=== PATIENT | female | born 1965 | race Caucasian/White ===

== ENCOUNTER 2018-10-10 17:14 | Emergency (ER) | payer MEDICARE, MEDICAID ==
[~2018-10-10] VITALS: Ht 170.2 cm; Wt 109.0 kg
[~2018-10-10 17:14] MED LIST: ATOR40TA PO; DESV100T PO; IBUP-1986 PO; LOSA1TAB41 PO; MORP30TA60 PO; NORCO10T PO; PYRI100T2 PO; TIZA4CAP PO
[2018-10-10 17:58] LABS: BASOPHILS # (AUTO) 0.1 X10'3 (0-0.2); BASOPHILS % (AUTO) 0.6 % (0-1); EOSINOPHILS # (AUTO) 0.3 X10'3 (0-0.9); EOSINOPHILS % (AUTO) 2.7 % (0-6); HEMATOCRIT 36.8 % (35.0-45.0); HEMOGLOBIN 11.8 g/dl (12.0-16.0); LYMPHOCYTES # (AUTO) 4.1 X10'3 (1.1-4.8); LYMPHOCYTES % (AUTO) 35.5 % (21-51); MEAN CORPUSCULAR HEMOGLOBIN 29.8 PG (27.0-31.0); MEAN CORPUSCULAR HGB CONC 32.1 g/dL (33.0-36.5); MEAN CORPUSCULAR VOLUME 92.9 FL (78-98); MONOCYTES # (AUTO) 0.7 X10'3 (0-0.9); MONOCYTES % (AUTO) 6.1 % (2-12); NEUTROPHILS # (AUTO) 6.4 X10'3 (1.8-7.7); NEUTROPHILS % (AUTO) 55.1 % (42-75); PLATELET COUNT 460 X10'3 (140-440); RED BLOOD COUNT 3.96 X10'6 (4.20-5.60); WHITE BLOOD COUNT 11.6 X10'3 (4.5-11.0)
[2018-10-10 18:08] LABS: ALBUMIN 4.1 G/DL (3.4-5.0); ANION GAP 11 (8-16); BILIRUBIN,TOTAL 0.4 MG/DL (0.1-1.0); BLOOD UREA NITROGEN 25 MG/DL (7-18); BUN/CREATININE RATIO 19.1 (6.6-38.0); CHLORIDE 103 MMOL/L (99-107); CREATININE 1.31 MG/DL (0.40-0.90); GLUCOSE 160 MG/DL (70-104); SODIUM 142 MMOL/L (135-145); TOTAL CARBON DIOXIDE 28.1 MMOL/L (24-32); TOTAL PROTEIN 8.3 G/DL (6.4-8.2); eGFR 42 ML/MIN
[2018-10-10 18:09] LABS: ALANINE AMINOTRANSFERASE 17 U/L (12-78); ALKALINE PHOSPHATASE 46 IU/L (46-116); ASPARTATE AMINO TRANSFERASE 30 U/L (10-37)
[2018-10-10 18:25] LABS: PARTIAL THROMBOPLASTIN TIME 25 SECONDS (22-32); PROTHROMBIN TIME 10.1 SECONDS (9.0-12.0)
[2018-10-10] MEDS ORDERED: ondansetron/PF 4mg/2ml inj IV ONE (19:40)
[2018-10-10] MEDS ORDERED: morphine 4 MG/ML inj SYRINge IV ONE (19:40)
[2018-10-10 19:56] LABS: LIPASE 154 U/L (73-393)
--- NOTE | 2018-10-10 21:05 | NUR ---
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
[2018-10-10] MEDS ORDERED: PANT-47 PO (22:33)
[2018-10-10 22:48] VITALS: BP 132/79
== END 2018-10-10 22:51 | disposition home or self-care (01) ==
LOC: ER 17:15
DX: R10.13 Epigastric pain (principal); R10.11 Right upper quadrant pain; R10.12 Left upper quadrant pain; I10 Essential (primary) hypertension; G89.29 Other chronic pain; Z90.710 Acquired absence of both cervix and uterus; Z98.890 Other specified postprocedural states; Z56.0 Unemployment, unspecified; Z88.2 Allergy status to sulfonamides; Z88.5 Allergy status to narcotic agent; Z88.8 Allergy status to other drugs, medicaments and biological substances; Z79.899 Other long term (current) drug therapy
CPT/HCPCS: 36415; 71045; 76700; 80053; 83690; 84484; 85025; 85610; 85730; 93005; 96374; 96375; 99284; J2270; J2405

== ENCOUNTER 2020-10-11 07:24 | Emergency (ER) | payer MEDICARE, MEDICAID ==
[~2020-10-11] VITALS: Ht 170.2 cm; Wt 111.4 kg
[~2020-10-11 07:24] MED LIST changes: +PANT-47 PO; +PYRI100T10 PO; -PYRI100T2 PO
[2020-10-11 07:58] LABS: BASOPHILS # (AUTO) 0.1 X10'3 (0-0.2); BASOPHILS % (AUTO) 1.2 % (0-1); EOSINOPHILS # (AUTO) 0.3 X10'3 (0-0.9); HEMOGLOBIN 12.7 g/dl (12.0-16.0); LYMPHOCYTES # (AUTO) 3.8 X10'3 (1.1-4.8); LYMPHOCYTES % (AUTO) 44.1 % (21-51); MEAN CORPUSCULAR HEMOGLOBIN 32.2 PG (27.0-31.0); MEAN CORPUSCULAR HGB CONC 34.3 g/dL (33.0-36.5); MEAN CORPUSCULAR VOLUME 93.8 FL (78-98); MEAN PLATELET VOLUME 8.3 FL (7.4-10.4); MONOCYTES # (AUTO) 0.7 X10'3 (0-0.9); MONOCYTES % (AUTO) 8.1 % (2-12); NEUTROPHILS # (AUTO) 3.8 X10'3 (1.8-7.7); NEUTROPHILS % (AUTO) 43.6 % (42-75); PLATELET COUNT 303 X10'3 (140-440); RED BLOOD COUNT 3.94 X10'6 (4.20-5.60); RED CELL DISTRIBUTION WIDTH 12.8 % (11.5-14.5); WHITE BLOOD COUNT 8.7 X10'3 (4.5-11.0)
--- NOTE | 2020-10-11 08:04 | NUR ---
pt states she has been out of her meds for a while and has been in the middle of a move and hasn't been able to get to find a new doctor.
[2020-10-11 08:23] LABS: ALANINE AMINOTRANSFERASE 16 U/L (12-78); ALBUMIN 3.6 G/DL (3.4-5.0); ALBUMIN/GLOBULIN RATIO 0.9 (1.1-1.5); ALKALINE PHOSPHATASE 70 IU/L (46-116); ANION GAP 12 (8-16); ASPARTATE AMINO TRANSFERASE 13 U/L (10-37); BILIRUBIN,TOTAL 0.3 MG/DL (0.1-1.0); BLOOD UREA NITROGEN 19 MG/DL (7-18); BUN/CREATININE RATIO 24.1 (6.6-38.0); CALCIUM 9.7 MG/DL (8.5-10.1); CHLORIDE 106 MMOL/L (99-107); CREATININE 0.79 MG/DL (0.40-0.90); GLUCOSE 133 MG/DL (70-104); POTASSIUM 3.6 MMOL/L (3.5-5.1); SODIUM 144 MMOL/L (135-145); TOTAL CARBON DIOXIDE 26.4 MMOL/L (24-32); TOTAL PROTEIN 7.6 G/DL (6.4-8.2); eGFR 75 ML/MIN
--- NOTE | 2020-10-11 10:44 | NUR ---
pt resting on gurney, attempting to sleep
[2020-10-11 12:18] VITALS: BP 139/98
== END 2020-10-11 12:19 | disposition home or self-care (01) ==
LOC: ER 07:25
DX: R07.89 Other chest pain (principal); R42 Dizziness and giddiness; R11.0 Nausea; I10 Essential (primary) hypertension; G89.29 Other chronic pain; Z90.710 Acquired absence of both cervix and uterus; Z56.0 Unemployment, unspecified; Z86.19 Personal history of other infectious and parasitic diseases; Z88.2 Allergy status to sulfonamides; Z88.8 Allergy status to other drugs, medicaments and biological substances; Z79.899 Other long term (current) drug therapy
CPT/HCPCS: 36415; 71045; 80053; 83880; 84484; 85025; 93005; 99285

== ENCOUNTER 2021-02-14 12:49 | Emergency (ER) | payer MEDICARE, MEDICAID ==
[~2021-02-14] VITALS: Ht 172.7 cm; Wt 118.8 kg
[2021-02-14 13:02] VITALS: BP 145/73
[2021-02-14] MEDS ORDERED: cyclobenzaprine 10mg tablet PO ONE (15:20)
[2021-02-14] MEDS ORDERED: ketorolac tromethamine 15mg/ml inj. IM ONE (15:20)
[2021-02-14] MEDS ORDERED: ORPH100T2 PO (15:32)
[2021-02-14] MEDS ORDERED: IBUP-1984 PO (15:32)
== END 2021-02-14 16:03 | disposition home or self-care (01) ==
LOC: ER 12:50
DX: S39.012A Strain of muscle, fascia and tendon of lower back, initial encounter (principal); M54.6 Pain in thoracic spine; I10 Essential (primary) hypertension; G89.29 Other chronic pain; F32.9 Major depressive disorder, single episode, unspecified; Z90.710 Acquired absence of both cervix and uterus; Z98.890 Other specified postprocedural states; Z56.0 Unemployment, unspecified; Z88.2 Allergy status to sulfonamides; Z88.5 Allergy status to narcotic agent; Z88.8 Allergy status to other drugs, medicaments and biological substances; Z79.899 Other long term (current) drug therapy; X58.XXXA Exposure to other specified factors, initial encounter; Y93.89 Activity, other specified; Y92.89 Other specified places as the place of occurrence of the external cause; Y99.8 Other external cause status
CPT/HCPCS: 71045; 96372; 99283; J1885

== ENCOUNTER 2021-05-23 16:31 | Emergency (ER) | payer MEDICARE, MEDICAID ==
[~2021-05-23] VITALS: Ht 170.2 cm; Wt 118.2 kg
[~2021-05-23 16:31] MED LIST changes: +LIDOcaine 1% 30ml preserv. free vial ONE; +ORPH100T2 PO
[2021-05-23 16:55] VITALS: BP 107/62
[2021-05-23] MEDS ORDERED: HYDROcodone/acetaminophen 10/325mg tab PO ONE (16:55)
[2021-05-23] MEDS ORDERED: ondansetron 4mg rapidly disintigrating tab PO ONE (19:10)
[2021-05-23] MEDS ORDERED: morphine 4 MG/ML inj SYRINge IM ONE ×2 (19:10→20:20)
[2021-05-23] MEDS ORDERED: HYDR-3965 PO (20:48)
== END 2021-05-23 21:03 | disposition home or self-care (01) ==
LOC: ER 16:31
DX: S52.502A Unspecified fracture of the lower end of left radius, initial encounter for closed fracture (principal); M54.6 Pain in thoracic spine; R42 Dizziness and giddiness; I10 Essential (primary) hypertension; G89.29 Other chronic pain; Z90.710 Acquired absence of both cervix and uterus; Z88.2 Allergy status to sulfonamides; Z79.899 Other long term (current) drug therapy; W22.8XXA Striking against or struck by other objects, initial encounter; Y93.89 Activity, other specified; Y92.89 Other specified places as the place of occurrence of the external cause; Y99.8 Other external cause status
CPT/HCPCS: 29125; 73110; 96372; 99284; J2001; J2270

== ENCOUNTER 2024-09-04 17:48 | Inpatient (IN) | payer MEDICARE, MEDICAID ==
[~2024-09-04] VITALS: Ht 167.6 cm; Wt 109.1 kg
[~2024-09-04 17:48] MED LIST changes: -LIDOcaine 1% 30ml preserv. free vial ONE; -ORPH100T2 PO; +ORPH100T4 PO
[2024-09-04] MEDS: ipratropium/albuterol 3ml nebule NEB ONE (18:33)
[2024-09-04 18:36] VITALS: PULSE 86; RESP 16; O2SAT 98
[2024-09-04 18:39] VITALS: PULSE 86; RESP 15; O2SAT 98
[2024-09-04 19:21] LABS: BASOPHILS # (AUTO) 0.1 X10'3 (0-0.2); BASOPHILS % (AUTO) 0.6 % (0-1); EOSINOPHILS # (AUTO) 0.2 X10'3 (0-0.9); EOSINOPHILS % (AUTO) 2.2 % (0-6); HEMATOCRIT 31.3 % (35.0-45.0); HEMOGLOBIN 10.6 g/dl (12.0-16.0); LYMPHOCYTES # (AUTO) 3.1 X10'3 (1.1-4.8); LYMPHOCYTES % (AUTO) 30.7 % (21-51); MEAN CORPUSCULAR HEMOGLOBIN 32.6 PG (27.0-31.0); MEAN CORPUSCULAR HGB CONC 33.8 g/dL (33.0-36.5); MEAN CORPUSCULAR VOLUME 96.5 FL (78-98); MEAN PLATELET VOLUME 7.8 FL (7.4-10.4); MONOCYTES # (AUTO) 0.8 X10'3 (0-0.9); MONOCYTES % (AUTO) 7.9 % (2-12); NEUTROPHILS % (AUTO) 58.6 % (42-75); PLATELET COUNT 281 X10'3 (140-440); RED BLOOD COUNT 3.24 X10'6 (4.20-5.60); RED CELL DISTRIBUTION WIDTH 13.9 % (11.5-14.5); WHITE BLOOD COUNT 10.3 X10'3 (4.5-11.0)
[2024-09-04 19:30] LABS: ALBUMIN 3.7 G/DL (3.4-5.0); ANION GAP 6 (8-16); BLOOD UREA NITROGEN 22 MG/DL (7-18); BUN/CREATININE RATIO 20.2 (10.0-20.0); CALCIUM 8.2 MG/DL (8.5-10.1); CHLORIDE 99 MMOL/L (99-107); CREATININE 1.09 MG/DL (0.40-0.90); GLUCOSE 129 MG/DL (70-104); POTASSIUM 4.3 MMOL/L (3.5-5.1); SODIUM 136 MMOL/L (135-145); TOTAL CARBON DIOXIDE 31.2 MMOL/L (24-32); eCRCL 51 ML/MIN; eGFR 51 ML/MIN
[2024-09-04 19:34] LABS: APTT 27 SECONDS (22-32)
[2024-09-04] MEDS: normal saline 1000ml 1,000 ML IV ONE (20:50)
[2024-09-04] MEDS ORDERED: ondansetron/PF 4mg/2ml inj IV PRN (21:25)
[2024-09-04] MEDS ORDERED: mag hydrox/Alum hydrox/simeth 30ml oral suspension PO PRN (21:25)
[2024-09-04] MEDS ORDERED: magnesium sulf-water 4G/100mL 100 ML IV PRN (21:25)
[2024-09-04] MEDS ORDERED: magnesium hydroxide 30ml (MOM) UD suspension PO PRN (21:25)
[2024-09-04] MEDS ORDERED: potassium Cl 20 mEq SR tablet PO PRN ×2 (21:25)
[2024-09-04] MEDS ORDERED: potassium Cl 40MEQ/1/2NS 520ml 520 ML IV PRN (21:25)
[2024-09-04] MEDS ORDERED: magnesium Cl slow-release 64mg tablet PO PRN (21:25)
[2024-09-04] MEDS ORDERED: magnesium sulf-water 2g/50mL 50 ML IV PRN (21:25)
[2024-09-04] MEDS ORDERED: iohexol 350MG/ML 100ml bottle IV ONE (21:28)
[2024-09-04 21:54] LABS: MAGNESIUM 1.9 MG/DL (1.5-2.4); PHOSPHORUS 2.8 MG/DL (2.3-4.5); THYROID STIMULATING HORMONE 2.93 ulU/ml (0.34-4.50)
[2024-09-04] MEDS ORDERED: dextrose 50%-water 50ml dispensing syringe IV PRN ×2 (21:55)
[2024-09-04] MEDS ORDERED: glucagon, human recombinant 1mg kit SUBCUT PRN (21:55)
[2024-09-04] MEDS ORDERED: DEXTROSE 15 GM of carb/4 tabs (each vial/BOTTLE has 4 tablets) PO PRN ×2 (21:55)
[2024-09-04 21:58] LABS: HEMOGLOBIN A1C 6.3 % (4.5-6.2)
[2024-09-04] MEDS: normal saline 1000ml 1,000 ML IV SCH (22:35)
[2024-09-04] MEDS: aspirin 325mg tablet PO ONE (22:36)
[2024-09-04] MEDS ORDERED: METO-467 PO (23:07)
[2024-09-04] MEDS ORDERED: FLUO40CA10 PO (23:07)
[2024-09-04] MEDS ORDERED: PREG150C PO (23:07)
[2024-09-04] MEDS ORDERED: METO50TA16 (23:07)
[2024-09-04] MEDS ORDERED: ATOR-411 PO (23:07)
[2024-09-04] MEDS ORDERED: LEVO175T37 (23:07)
[2024-09-04] MEDS ORDERED: AMLO10TA5 PO (23:07)
[2024-09-04 23:31] VITALS: BP 148/87; PULSE 94; RESP 16; TEMP 97.9; O2SAT 95
[2024-09-05 02:09] LABS: URINE AMPHETAMINE SCREEN NEGATIVE (Neg); URINE BARBITUATE SCREEN NEGATIVE (Neg); URINE BENZODIAZEPINES SCREEN NEGATIVE (Neg); URINE CANNABINOID SCREEN NEGATIVE (Neg); URINE COCAINE SCREEN NEGATIVE (Neg); URINE METHADONE SCREEN NEGATIVE (Neg); URINE OPIATE SCREEN NEGATIVE (Neg); URINE PHENCYCLIDINE SCREEN NEGATIVE (Neg)
[2024-09-05] MEDS: acetaminophen 325mg tablet PO PRN (03:59)
[2024-09-05 04:00] VITALS: BP 111/61; PULSE 70; RESP 16; TEMP 97.9; O2SAT 92
[2024-09-05 06:00] VITALS: BP 104/48; PULSE 78; RESP 18; TEMP 98.3; O2SAT 92
[2024-09-05 06:12] LABS: BASOPHILS # (AUTO) 0.1 X10'3 (0-0.2); BASOPHILS % (AUTO) 0.7 % (0-1); EOSINOPHILS # (AUTO) 0.2 X10'3 (0-0.9); HEMATOCRIT 31.6 % (35.0-45.0); HEMOGLOBIN 10.6 g/dl (12.0-16.0); LYMPHOCYTES # (AUTO) 3.1 X10'3 (1.1-4.8); LYMPHOCYTES % (AUTO) 37.8 % (21-51); MEAN CORPUSCULAR HEMOGLOBIN 32.3 PG (27.0-31.0); MEAN CORPUSCULAR HGB CONC 33.5 g/dL (33.0-36.5); MEAN CORPUSCULAR VOLUME 96.2 FL (78-98); MONOCYTES # (AUTO) 0.7 X10'3 (0-0.9); MONOCYTES % (AUTO) 8.9 % (2-12); NEUTROPHILS # (AUTO) 4.1 X10'3 (1.8-7.7); NEUTROPHILS % (AUTO) 49.6 % (42-75); PLATELET COUNT 254 X10'3 (140-440); RED BLOOD COUNT 3.29 X10'6 (4.20-5.60); RED CELL DISTRIBUTION WIDTH 14.2 % (11.5-14.5); WHITE BLOOD COUNT 8.2 X10'3 (4.5-11.0)
[2024-09-05 06:24] LABS: ALBUMIN 3.4 G/DL (3.4-5.0); ANION GAP 5 (8-16); BLOOD UREA NITROGEN 15 MG/DL (7-18); BUN/CREATININE RATIO 17.6 (10.0-20.0); CALCIUM 8.4 MG/DL (8.5-10.1); CHLORIDE 102 MMOL/L (99-107); CHOL/HDL RATIO 5.9 (0.00-4.99); CHOLESTEROL 299 MG/DL (0-200); CREATININE 0.85 MG/DL (0.40-0.90); GLUCOSE 103 MG/DL (70-104); HDL CHOLESTEROL 51 MG/DL (35-60); LDL CHOLESTEROL 146 MG/DL (50-100); POTASSIUM 4.2 MMOL/L (3.5-5.1); SODIUM 140 MMOL/L (135-145); TOTAL CARBON DIOXIDE 32.6 MMOL/L (24-32); TRIGLYCERIDES 320 MG/DL (20-135); eCRCL 66 ML/MIN; eGFR 68 ML/MIN
[2024-09-05] MEDS: INSULIN LISPRO 100 UNIT/ML INSULN.PEN MULTI-DOSE SQ SCH (07:00)
[2024-09-05] MEDS ORDERED: atorvastatin 20mg tablet PO SCH (08:00)
[2024-09-05] MEDS: K and/or MAG REPLACEMENT MC SCH (08:00)
[2024-09-05 08:30] VITALS: RESP 18; O2SAT 92
[2024-09-05] MEDS: aspirin 81mg tab.chew PO SCH (08:43)
[2024-09-05 09:40] LABS: BILIRUBIN,URINE NEGATIVE (Neg); CLARITY,URINE CLEAR (Clear); COLOR,URINE YELLOW (Yellow); GLUCOSE, URINE NEGATIVE (Neg); KETONES,URINE NEGATIVE (Neg); LEUKOCYTE ESTERASE ,URINE NEGATIVE (Neg); NITRITES, URINE NEGATIVE (Neg); OCCULT BLOOD,URINE TRACE-INTACT (Neg); PH,URINE 6.5 (4.8-8.0); PROTEIN,URINE NEGATIVE (Neg); UROBILINOGEN,URINE 0.2 E.U/dL (0.2-1.0)
[2024-09-05 09:49] LABS: BACTERIA,URINE NONE SEEN /HPF (Neg); MUCUS STRANDS FEW /LPF (Neg); RBC,URINE 0-2 /HPF (0-2); SQUAMOUS EPITHELIAL CELL,UR FEW /LPF (FEW); UA COLLECTION TYPE CLN CATCH MIDSTREAM; WBC,URINE 0-4 /HPF (0-4)
[2024-09-05 10:00] VITALS: BP 121/58; PULSE 82; RESP 18; TEMP 97.8; O2SAT 96
[2024-09-05] MEDS: levoTHYROXINE 175mcg tablet PO SCH (14:57)
[2024-09-05] MEDS: atorvastatin 20mg tablet PO SCH (14:59)
[2024-09-05] MEDS: ketorolac trometh 30MG/ML vial 30 MG/ML VIAL IM ONE (15:27)
[2024-09-05] MEDS: LORazepam 2 mg/ml vial IV ONE (16:09)
[2024-09-05 18:00] VITALS: BP 135/88; PULSE 73; RESP 18; TEMP 98.1; O2SAT 95
[2024-09-05] MEDS: pregabalin 75mg capsule PO SCH (20:02)
[2024-09-05] MEDS: ketorolac trometh 15mg/ml vial 15 MG/ML ML IV ONE (21:31)
[2024-09-05] MEDS: enoxaparin 40mg/0.4ml syringe SUBCUT SCH (21:38)
[2024-09-05 22:00] VITALS: BP 107/53; PULSE 75; RESP 17; TEMP 97.8; O2SAT 94
[2024-09-06] VITALS (10 sets, daily range): BP systolic 109–136; BP diastolic 60–75; PULSE 64–81; RESP 14–16; TEMP 97.5–98.1; O2SAT 92–96
[2024-09-06 05:35] LABS: BASOPHILS # (AUTO) 0.1 X10'3 (0-0.2); BASOPHILS % (AUTO) 0.9 % (0-1); EOSINOPHILS # (AUTO) 0.3 X10'3 (0-0.9); EOSINOPHILS % (AUTO) 4.7 % (0-6); HEMATOCRIT 30.7 % (35.0-45.0); HEMOGLOBIN 10.3 g/dl (12.0-16.0); LYMPHOCYTES # (AUTO) 2.2 X10'3 (1.1-4.8); LYMPHOCYTES % (AUTO) 39.1 % (21-51); MEAN CORPUSCULAR HEMOGLOBIN 32.4 PG (27.0-31.0); MEAN CORPUSCULAR HGB CONC 33.6 g/dL (33.0-36.5); MEAN CORPUSCULAR VOLUME 96.7 FL (78-98); MONOCYTES # (AUTO) 0.6 X10'3 (0-0.9); MONOCYTES % (AUTO) 9.9 % (2-12); NEUTROPHILS # (AUTO) 2.5 X10'3 (1.8-7.7); NEUTROPHILS % (AUTO) 45.4 % (42-75); PLATELET COUNT 251 X10'3 (140-440); RED BLOOD COUNT 3.18 X10'6 (4.20-5.60); RED CELL DISTRIBUTION WIDTH 14.1 % (11.5-14.5); WHITE BLOOD COUNT 5.6 X10'3 (4.5-11.0)
[2024-09-06 05:55] LABS: ALBUMIN 3.1 G/DL (3.4-5.0); ANION GAP 4 (8-16); BLOOD UREA NITROGEN 14 MG/DL (7-18); BUN/CREATININE RATIO 20.6 (10.0-20.0); CALCIUM 8.4 MG/DL (8.5-10.1); CHLORIDE 105 MMOL/L (99-107); CREATININE 0.68 MG/DL (0.40-0.90); GLUCOSE 127 MG/DL (70-104); POTASSIUM 3.8 MMOL/L (3.5-5.1); SODIUM 144 MMOL/L (135-145); TOTAL CARBON DIOXIDE 35.3 MMOL/L (24-32); eCRCL 82 ML/MIN; eGFR 88 ML/MIN
[2024-09-06] MEDS: FLUoxetine 20mg capsule PO SCH (07:41)
[2024-09-06] MEDS: traMADol 50MG tablet PO PRN (07:42)
[2024-09-06] MEDS: ketorolac trometh 15mg/ml vial 15 MG/ML ML IV ONE (12:03)
[2024-09-06] MEDS ORDERED: buprenorphine/naloxone 8MG-2MG SUBlingual film SL SCH (13:00)
[2024-09-06] MEDS: buprenorphine/naloxone 2-0.5mg sublingual tablet SL SCH (15:32)
[2024-09-07 05:20] LABS: BASOPHILS # (AUTO) 0.1 X10'3 (0-0.2); BASOPHILS % (AUTO) 0.9 % (0-1); EOSINOPHILS # (AUTO) 0.3 X10'3 (0-0.9); EOSINOPHILS % (AUTO) 4.6 % (0-6); HEMATOCRIT 30.5 % (35.0-45.0); LYMPHOCYTES # (AUTO) 1.6 X10'3 (1.1-4.8); LYMPHOCYTES % (AUTO) 27.8 % (21-51); MEAN CORPUSCULAR HEMOGLOBIN 31.9 PG (27.0-31.0); MEAN CORPUSCULAR HGB CONC 32.8 g/dL (33.0-36.5); MEAN CORPUSCULAR VOLUME 97.2 FL (78-98); MEAN PLATELET VOLUME 7.8 FL (7.4-10.4); MONOCYTES # (AUTO) 0.5 X10'3 (0-0.9); MONOCYTES % (AUTO) 8.6 % (2-12); NEUTROPHILS # (AUTO) 3.4 X10'3 (1.8-7.7); NEUTROPHILS % (AUTO) 58.1 % (42-75); PLATELET COUNT 265 X10'3 (140-440); RED BLOOD COUNT 3.14 X10'6 (4.20-5.60); RED CELL DISTRIBUTION WIDTH 13.9 % (11.5-14.5); WHITE BLOOD COUNT 5.8 X10'3 (4.5-11.0)
[2024-09-07 05:29] LABS: ALBUMIN 3.2 G/DL (3.4-5.0); ANION GAP 6 (8-16); BLOOD UREA NITROGEN 16 MG/DL (7-18); BUN/CREATININE RATIO 23.2 (10.0-20.0); CALCIUM 8.4 MG/DL (8.5-10.1); CHLORIDE 103 MMOL/L (99-107); CREATININE 0.69 MG/DL (0.40-0.90); GLUCOSE 119 MG/DL (70-104); POTASSIUM 3.6 MMOL/L (3.5-5.1); SODIUM 140 MMOL/L (135-145); TOTAL CARBON DIOXIDE 30.7 MMOL/L (24-32); eCRCL 81 ML/MIN; eGFR 87 ML/MIN
[2024-09-07 06:00] VITALS: BP 130/77; PULSE 77; RESP 16; TEMP 97.8; O2SAT 94
[2024-09-07] MEDS: amLODIPine 5mg tablet PO SCH (07:31)
[2024-09-07 11:00] VITALS: BP 132/76; PULSE 66; RESP 18; TEMP 97.9; O2SAT 91
== END 2024-09-07 13:30 | disposition home or self-care (01) | DRG 917 ==
LOC: ER 17:49 → ED HOLD 20:19 → EDBEDREQ 22:53 → ORTHO 4S 23:35
PROVIDERS: ADMIT Internal Medicine Critical Care Medicine; ATTEND Family Medicine
PROC: B3251ZZ Computerized Tomography (CT Scan) of Bilateral Common Carotid Arteries using Low Osmolar Contrast (ICD-10-PCS; principal; 2024-09-04)
PROC: B32R1ZZ Computerized Tomography (CT Scan) of Intracranial Arteries using Low Osmolar Contrast (ICD-10-PCS; 2024-09-04)
PROC: B3281ZZ Computerized Tomography (CT Scan) of Bilateral Internal Carotid Arteries using Low Osmolar Contrast (ICD-10-PCS; 2024-09-04)
PROC: 4A00X4Z Measurement of Central Nervous Electrical Activity, External Approach (ICD-10-PCS; 2024-09-05)
DX: T40.491A Poisoning by other synthetic narcotics, accidental (unintentional), initial encounter (principal); G92.8 Other toxic encephalopathy; G45.9 Transient cerebral ischemic attack, unspecified; Z20.822 Contact with and (suspected) exposure to COVID-19; R42 Dizziness and giddiness; T40.415A Adverse effect of fentanyl or fentanyl analogs, initial encounter; G89.29 Other chronic pain; M54.2 Cervicalgia; E03.9 Hypothyroidism, unspecified; M54.9 Dorsalgia, unspecified; E11.40 Type 2 diabetes mellitus with diabetic neuropathy, unspecified; F32.A Depression, unspecified; E78.00 Pure hypercholesterolemia, unspecified; I10 Essential (primary) hypertension; Z86.73 Personal history of transient ischemic attack (TIA), and cerebral infarction without residual deficits; Y92.89 Other specified places as the place of occurrence of the external cause; Z79.899 Other long term (current) drug therapy; Z88.2 Allergy status to sulfonamides; Z88.5 Allergy status to narcotic agent; Z88.8 Allergy status to other drugs, medicaments and biological substances; Z90.710 Acquired absence of both cervix and uterus; Z85.850 Personal history of malignant neoplasm of thyroid
CPT/HCPCS: 36415; 70450; 70496; 70498; 70551; 71045; 80048; 80061; 80305; 81001; 82140; 82948; 83036; 83735; 84100; 84443; 85025; 85610; 85651; 85730; 87081; 87811; 93005; 93306; 94640; 94760; 95816; 97116; 97161; 97530; 99285; A4615; G0378; J1650; J1815; J1885; J2060; J7030; Q9967

== ENCOUNTER 2024-09-10 16:59 | Emergency (ER) | payer MEDICARE, MEDICAID ==
[~2024-09-10] VITALS: Ht 170.2 cm; Wt 111.8 kg
[~2024-09-10 16:59] MED LIST changes: +AMLO10TA5 PO; +ATOR-411 PO; -ATOR40TA PO; -DESV100T PO; +FLUO40CA10 PO; -IBUP-1986 PO; +LEVO175T37; -LOSA1TAB41 PO; +METO-467 PO; -MORP30TA60 PO; -NORCO10T PO; -ORPH100T4 PO; -PANT-47 PO; +PREG150C PO; -PYRI100T10 PO; -TIZA4CAP PO
[2024-09-10 18:00] LABS: BASOPHILS # (AUTO) 0.1 X10'3 (0-0.2); BASOPHILS % (AUTO) 1.1 % (0-1); EOSINOPHILS # (AUTO) 0.4 X10'3 (0-0.9); EOSINOPHILS % (AUTO) 4.9 % (0-6); HEMATOCRIT 33.4 % (35.0-45.0); HEMOGLOBIN 10.9 g/dl (12.0-16.0); LYMPHOCYTES # (AUTO) 2.4 X10'3 (1.1-4.8); LYMPHOCYTES % (AUTO) 30.9 % (21-51); MEAN CORPUSCULAR HEMOGLOBIN 31.9 PG (27.0-31.0); MEAN CORPUSCULAR HGB CONC 32.8 g/dL (33.0-36.5); MEAN CORPUSCULAR VOLUME 97.3 FL (78-98); MONOCYTES # (AUTO) 0.6 X10'3 (0-0.9); MONOCYTES % (AUTO) 7.2 % (2-12); NEUTROPHILS # (AUTO) 4.3 X10'3 (1.8-7.7); NEUTROPHILS % (AUTO) 55.9 % (42-75); PLATELET COUNT 335 X10'3 (140-440); RED BLOOD COUNT 3.43 X10'6 (4.20-5.60); RED CELL DISTRIBUTION WIDTH 14.2 % (11.5-14.5); WHITE BLOOD COUNT 7.7 X10'3 (4.5-11.0)
[2024-09-10 18:02] LABS: ALANINE AMINOTRANSFERASE 27 U/L (12-78); ALBUMIN 3.9 G/DL (3.4-5.0); ALBUMIN/GLOBULIN RATIO 0.8 (1.1-1.5); ALKALINE PHOSPHATASE 97 IU/L (46-116); ANION GAP 5 (8-16); ASPARTATE AMINO TRANSFERASE 32 U/L (10-37); BILIRUBIN,TOTAL 0.3 MG/DL (0.1-1.0); BLOOD UREA NITROGEN 22 MG/DL (7-18); BUN/CREATININE RATIO 24.4 (10.0-20.0); CALCIUM 9.3 MG/DL (8.5-10.1); CHLORIDE 101 MMOL/L (99-107); GLUCOSE 159 MG/DL (70-104); POTASSIUM 3.9 MMOL/L (3.5-5.1); SODIUM 143 MMOL/L (135-145); TOTAL CARBON DIOXIDE 36.7 MMOL/L (24-32); TOTAL PROTEIN 8.5 G/DL (6.4-8.2); eCRCL 65 ML/MIN; eGFR 64 ML/MIN
[2024-09-10 18:09] LABS: PRO BRAIN NATRIURETIC PEPTIDE 296 PG/ML (0-125)
[2024-09-10 20:25] VITALS: TEMP 98
[2024-09-10] MEDS ORDERED: FURO-150 PO (20:31)
[2024-09-10 20:46] VITALS: BP 117/83; PULSE 62; RESP 16; O2SAT 94
[2024-09-10] MEDS: furosemide 20MG tablet PO ONE (20:53)
== END 2024-09-10 20:57 | disposition home or self-care (01) ==
LOC: ER 17:00
DX: R60.0 Localized edema (principal); I10 Essential (primary) hypertension; G89.29 Other chronic pain; M54.9 Dorsalgia, unspecified; F32.A Depression, unspecified; Z90.710 Acquired absence of both cervix and uterus; Z79.899 Other long term (current) drug therapy; Z88.5 Allergy status to narcotic agent; Z88.2 Allergy status to sulfonamides
CPT/HCPCS: 36415; 71045; 80053; 83880; 84484; 85025; 93005; 99285